=== PATIENT | male | born 1965 | race Two or more races ===

== ENCOUNTER 2021-01-10 12:52 | Day surgery (SDC) | payer BC ==
[2021-01-04 12:45] LABS: BASOPHILS % (AUTO) 0.6 % (0-1); EOSINOPHILS # (AUTO) 0.1 X10'3 (0-0.9); EOSINOPHILS % (AUTO) 1.2 % (0-6); LYMPHOCYTES # (AUTO) 1.6 X10'3 (1.1-4.8); LYMPHOCYTES % (AUTO) 22.9 % (21-51); MEAN CORPUSCULAR HEMOGLOBIN 34.9 PG (27.0-31.0); MEAN CORPUSCULAR HGB CONC 34.7 g/dL (33.0-36.5); MEAN CORPUSCULAR VOLUME 100.6 FL (78-98); MEAN PLATELET VOLUME 9.7 FL (7.4-10.4); MONOCYTES # (AUTO) 0.6 X10'3 (0-0.9); MONOCYTES % (AUTO) 7.9 % (2-12); NEUTROPHILS # (AUTO) 4.8 X10'3 (1.8-7.7); NEUTROPHILS % (AUTO) 67.4 % (42-75); PRE OP HEMATOCRIT 44.6 % (42.0-52.0); PRE OP HEMOGLOBIN 15.5 g/dL (14.0-17.9); PRE OP PLATELET COUNT 153 X10'3 (140-440); RED BLOOD COUNT 4.43 X10'6 (4.70-6.10); RED CELL DISTRIBUTION WIDTH 12.8 % (11.5-14.5)
[2021-01-04 12:55] LABS: PRE OP INR 1.1 INR; PRE OP PROTIME 10.9 SECONDS (9.0-12.0)
[2021-01-04 12:57] LABS: ALBUMIN 4.2 G/DL (3.4-5.0); ALBUMIN/GLOBULIN RATIO 1.3 (1.1-1.5); ALKALINE PHOSPHATASE 77 IU/L (46-116); BLOOD UREA NITROGEN 13 MG/DL (7-18); BUN/CREATININE RATIO 14.3 (5.4-32.0); CALCIUM 8.9 MG/DL (8.5-10.1); CHLORIDE 105 MMOL/L (99-107); CREATININE 0.91 MG/DL (0.60-1.10); PRE OP ALT 49 U/L (30-65); PRE OP ANION GAP 6 (8-16); PRE OP AST 34 U/L (10-37); PRE OP BILIRUB, TOTAL 0.7 MG/DL (0.0-1.0); PRE OP GLUCOSE 93 MG/DL (70-104); PRE OP POTASSIUM 4.1 MMOL/L (3.4-5.1); PRE OP SODIUM 142 MMOL/L (135-145); TOTAL CARBON DIOXIDE 30.8 MMOL/L (24-32); TOTAL PROTEIN 7.5 G/DL (6.4-8.2); eGFR 86 ML/MIN
[~2021-01-10] VITALS: Ht 182.9 cm; Wt 104.0 kg
[~2021-01-10 12:52] MED LIST: CARI-433 PO; HYDR-3973 PO; cefazolin/dext.iso 2gm/100ml IV ONE; famotidine 20mg tablet PO ONE; ringers solution, lacted 1,000 ML IV SCH
[2021-01-10 13:39] VITALS: BP 144/100
[2021-01-10] MEDS ORDERED: morphine 4 MG/ML inj SYRINge IV PRN (14:00)
[2021-01-10] MEDS ORDERED: meperidine/PF 25mg/ml syringe IV PRN ×3 (14:00)
[2021-01-10] MEDS ORDERED: ondansetron/PF 4mg/2ml inj IV PRN (14:00)
[2021-01-10] MEDS ORDERED: morphine 2 MG/ML inj. syringe IV PRN (14:00)
[2021-01-10] MEDS ORDERED: proCHLORperazine 10 MG/2 ml inj IV PRN (14:00)
[2021-01-10] MEDS ORDERED: ringers solution, lacted 1,000 ML IV SCH (14:00)
[2021-01-10] MEDS ORDERED: LIDOcaine 1% 30ml preserv. free vial ONE (17:10)
[2021-01-10] MEDS ORDERED: BUPIVAcaine 0.5% inj/PF 30 ML ONE (17:10)
[2021-01-10] MEDS ORDERED: sevoflurane 250ml liquid IH ONE (17:23)
[2021-01-10] MEDS ORDERED: midazolam 1 mg/ML 2ml injection ONE (17:26)
[2021-01-10] MEDS ORDERED: fentaNYL/PF 50MCG/1 ML 2ML syringe ONE (17:26)
[2021-01-10] MEDS ORDERED: LIDOcaine 2% (20mg/ml) 5ml vial ONE (17:35)
[2021-01-10] MEDS ORDERED: propofol inj 20 ML IV ONE (17:35)
[2021-01-10] MEDS ORDERED: meperidine/PF 25mg/ml syringe ONE (17:41)
--- NOTE | 2021-01-10 18:00 | NUR ---
PT AWAKE ALERT VSS NO DISTRESS NO PAIN, NINO PO'S DC INSTR GIVEN MEETS CRITERIA TO DC HOME. WC OUT TO CAR MOTHER DRIVING PT HOME. Addendum: 01/10/21 at 1914 by Alexa Navas RN Amended: Links added.
[2021-01-10] MEDS ORDERED: HYDROcodone/acetaminophen 10/325mg tab PO PRN (18:05)
[2021-01-10 18:07] VITALS: BP 115/75
[2021-01-10] MEDS ORDERED: benzocaine/menthol oral lozeng 1 EACH BOX MM PRN (18:15)
[2021-01-10 18:17] VITALS: BP 125/84
[2021-01-10 18:27] VITALS: BP 113/79
[2021-01-10 18:37] VITALS: BP 124/86
[2021-01-10 18:47] VITALS: BP 121/80
== END 2021-01-10 19:07 | disposition home or self-care (01) ==
LOC: PAS 12:52
PROVIDERS: ATTEND Surgery
DX: K42.9 Umbilical hernia without obstruction or gangrene (principal); G89.29 Other chronic pain; F12.90 Cannabis use, unspecified, uncomplicated; J45.909 Unspecified asthma, uncomplicated; I10 Essential (primary) hypertension; E66.9 Obesity, unspecified; Z68.33 Body mass index [BMI] 33.0-33.9, adult; Z72.89 Other problems related to lifestyle; Z79.899 Other long term (current) drug therapy; Z79.01 Long term (current) use of anticoagulants; Z88.1 Allergy status to other antibiotic agents; Z88.8 Allergy status to other drugs, medicaments and biological substances; Z91.09 Other allergy status, other than to drugs and biological substances; Z98.890 Other specified postprocedural states; Z20.822 Contact with and (suspected) exposure to COVID-19; Z83.3 Family history of diabetes mellitus; Z82.49 Family history of ischemic heart disease and other diseases of the circulatory system; Z82.3 Family history of stroke; Z82.61 Family history of arthritis; Z80.0 Family history of malignant neoplasm of digestive organs
CPT/HCPCS: 36415; 49585; 80053; 82948; 85025; 85610; 85730; 93005; J2001; J2175; J2250; J2704; J3010; J7120; U0003; U0005; Z7506; Z7512; A4215; A4618

== ENCOUNTER 2022-05-18 06:23 | Day surgery (SDC) | payer BC ==
[~2022-05-18] VITALS: Ht 182.9 cm; Wt 96.1 kg
[~2022-05-18 06:23] MED LIST changes: -CARI-433 PO; +CARI-515 PO; -cefazolin/dext.iso 2gm/100ml IV ONE; -famotidine 20mg tablet PO ONE; -ringers solution, lacted 1,000 ML IV SCH
[2022-05-18] MEDS ORDERED: ZINC50CA2 PO (06:53)
[2022-05-18] MEDS ORDERED: ASPI-1264 PO (06:54)
[2022-05-18] MEDS ORDERED: NAPR-56 PO (06:54)
[2022-05-18] MEDS ORDERED: VITA-268 PO (06:56)
[2022-05-18] MEDS ORDERED: [UNRECOGNIZED DRUG - OTHER] (06:56)
[2022-05-18] MEDS ORDERED: MELA10TA3 PO (06:57)
[2022-05-18] MEDS ORDERED: chemotherapy (06:58)
[2022-05-18] MEDS ORDERED: [UNRECOGNIZED DRUG - OTHER] (06:58)
[2022-05-18 07:16] LABS: BASOPHILS % (AUTO) 0.3 % (0-1); EOSINOPHILS % (AUTO) 0 % (0-6); HEMATOCRIT 35.3 % (42.0-52.0); LYMPHOCYTES # (AUTO) 0.4 X10'3 (1.1-4.8); LYMPHOCYTES % (AUTO) 3.1 % (21-51); MEAN CORPUSCULAR HEMOGLOBIN 31.6 PG (27.0-31.0); MEAN CORPUSCULAR VOLUME 92.9 FL (78-98); MONOCYTES # (AUTO) 0.4 X10'3 (0-0.9); MONOCYTES % (AUTO) 3.2 % (2-12); NEUTROPHILS # (AUTO) 12.2 X10'3 (1.8-7.7); NEUTROPHILS % (AUTO) 93.4 % (42-75); PLATELET COUNT 267 X10'3 (140-440); RED CELL DISTRIBUTION WIDTH 15.8 % (11.5-14.5); WHITE BLOOD COUNT 13.1 X10'3 (4.5-11.0)
[2022-05-18 07:30] VITALS: BP 132/90
[2022-05-18] MEDS ORDERED: midazolam 1 mg/ML 2ml injection ONE ×2 (08:36→09:48)
[2022-05-18] MEDS ORDERED: fentaNYL/PF 50MCG/1 ML 2ML syringe ONE ×2 (08:36→09:50)
[2022-05-18] MEDS ORDERED: heparin sodium, porcine/PF 100unit/ml 5ML syringe ONE (08:36)
[2022-05-18 09:30] VITALS: BP 128/84
[2022-05-18 10:45] VITALS: BP 125/76
[2022-05-18 11:00] VITALS: BP 134/81
[2022-05-18 11:15] VITALS: BP 124/74
== END 2022-05-18 11:40 | disposition home or self-care (01) ==
LOC: SSTAY O 06:23
PROVIDERS: ATTEND Radiology Vascular & Interventional Radiology
DX: C76.0 Malignant neoplasm of head, face and neck (principal); J45.909 Unspecified asthma, uncomplicated; Z98.890 Other specified postprocedural states; Z88.8 Allergy status to other drugs, medicaments and biological substances; Z88.1 Allergy status to other antibiotic agents; Z79.82 Long term (current) use of aspirin; Z79.899 Other long term (current) drug therapy
CPT/HCPCS: 36415; 36561; 76937; 77001; 85025; 85610; 87635; 99152; 99153; C1769; C1788; C1894; C9803; J1642; J2250; J3010; J7030; A4620; A6449